=== PATIENT | female | born 1950 | race Caucasian/White ===

== ENCOUNTER 2016-10-17 06:24 | Inpatient (IN) | payer OTHER ==
[~2016-10-17] VITALS: Ht 162.6 cm; Wt 76.2 kg
[2016-10-17] VITALS (20 sets, daily range): BP systolic 63–140; BP diastolic 33–60; PULSE 78–113; RESP 15–40; TEMP 97–99; O2SAT 92–100
[2016-10-17] MEDS ORDERED: NS 500 ML IV SCH (06:35)
[2016-10-17] MEDS ORDERED: PANTOPRAZOLE SODIUM 40 MG/VIAL (PROTONIX) IVP ONE (06:45)
[2016-10-17] MEDS ORDERED: PROCHLORPERAZINE EDISYLATE 10 MG/2 ML VIAL IVP ONE (06:45)
[2016-10-17 06:46] LABS: BASOPHILS % (AUTO) 0.3 % (0.0-2.0); EOSINOPHILS # (AUTO) 0.1 K/uL (0.0-0.4); EOSINOPHILS % (AUTO) 0.5 % (0.0-4.0); HEMATOCRIT 42.2 % (36-48); HEMOGLOBIN 13.7 g/dL (12.0-16.0); LYMPHOCYTES # (AUTO) 3.3 K/uL (1.0-5.5); LYMPHOCYTES % (AUTO) 26.7 % (20.5-51.5); MEAN CORPUSCULAR HEMOGLOBIN 29 pg (27-31); MEAN CORPUSCULAR HGB CONC 33 % (32-36); MEAN CORPUSCULAR VOLUME 90 fL (79.0-98.0); MONOCYTES % (AUTO) 8.3 % (1.7-9.3); NEUTROPHILS # (AUTO) 7.8 K/uL (1.8-7.7); NEUTROPHILS % (AUTO) 64.2 % (40.0-70.0); PLATELET COUNT (AUTO) 268 K/uL (130-430); RED BLOOD CELL COUNT(AUTO) 4.68 MIL/uL (4.2-6.2); RED CELL DISTRIBUTION WIDTH 14.6 % (9.0-15.0); WHITE BLOOD COUNT (AUTO) 12.2 K/uL (4.8-10.8)
[2016-10-17 06:55] LABS: CREATININE 1.29 mg/dL (0.55-1.30)
[2016-10-17 06:58] LABS: INR 1.2 (0.8-1.2); PROTHROMBIN TIME 12.6 SECS (9.5-12.5)
[2016-10-17 07:00] LABS: ALBUMIN 3.4 g/dL (3.4-4.8); TOTAL BILIRUBIN 0.9 mg/dL (0.0-1.0); TOTAL PROTEIN, SERUM 7.5 g/dL (6.4-8.3)
[2016-10-17] MEDS ORDERED: ADENOSINE 6MG/2ML VIAL IVP ONE (07:00)
[2016-10-17] MEDS ORDERED: ADENOSINE 6MG/2ML VIAL ONE ×2 (07:02→07:10)
[2016-10-17 07:03] LABS: POTASSIUM 2.9 mmol/L (3.5-5.1)
[2016-10-17] MEDS ORDERED: POTASSIUM CHLORIDE 20 MEQ TAB.PRT.SR PO ONE (07:15)
[2016-10-17] MEDS ORDERED: METOPROLOL TARTRATE 5 MG/5 ML VIAL IVP ONE (07:15)
[2016-10-17] MEDS ORDERED: MAGNESIUM SULFATE 1 GM/2 ML VIAL ONE (07:22)
[2016-10-17] MEDS ORDERED: ESTR0.623 PO (07:55)
[2016-10-17] MEDS ORDERED: SERT100T PO (07:55)
[2016-10-17] MEDS ORDERED: [UNRECOGNIZED DRUG - CODE] PO (07:55)
[2016-10-17] MEDS ORDERED: HYDR-4100 PO (07:55)
[2016-10-17] MEDS ORDERED: CHOL500037 PO (07:55)
[2016-10-17] MEDS ORDERED: MET10 PO (07:55)
[2016-10-17] MEDS ORDERED: LEVO125T8 PO (07:55)
[2016-10-17] MEDS ORDERED: METH750T3 PO (07:55)
[2016-10-17] MEDS ORDERED: MAGNESIUM SULFATE 50 ML IV ONE (08:00)
[2016-10-17] MEDS ORDERED: KCL 40mEq in D5/0.45NS 1000 mL 1,000 ML IV ONE (08:00)
[2016-10-17 08:27] LABS: CHOLESTEROL 160 mg/dL (<200); HDL CHOLESTEROL 54 mg/dL (>55); LDL CHOLESTEROL 77 mg/dL (<100); TRIGLYCERIDES 115 mg/dL (30-150)
[2016-10-17] MEDS ORDERED: NS 500 ML IV ONE (09:00)
[2016-10-17] MEDS: D5NS 1,000 ML IV SCH ×2 (11:45→20:48)
[2016-10-17] MEDS ORDERED: IPRATROPIUM BROM 0.5 MG/2.5 ML VIAL.NEB (ATROVENT) INH PRN (11:45)
[2016-10-17] MEDS ORDERED: ALBUTEROL SULFATE 0.083% 2.5 MG/3 ML VIAL.NEB INH PRN (11:45)
[2016-10-17] MEDS ORDERED: METHADONE HCL 10 MG TABLET PO ONE (12:15)
[2016-10-17] MEDS ORDERED: LEVOTHYROXINE SODIUM 0.125 MG TABLET PO ONE (12:15)
[2016-10-17] MEDS ORDERED: SERTRALINE HCL 50 MG TABLET PO ONE (12:15)
[2016-10-17 13:17] LABS: HEMATOCRIT 26.6 % (36-48); HEMOGLOBIN 8.6 g/dL (12.0-16.0)
[2016-10-17] MEDS ORDERED: PANTOPRAZOLE SODIUM 80 MG in NS 100 ML IV ONE (14:30)
[2016-10-17] MEDS: IPRATROPIUM BROM 0.5 MG/2.5 ML VIAL.NEB (ATROVENT) INH SCH ×3 (15:35→23:00)
[2016-10-17] MEDS: ALBUTEROL SULFATE 0.083% 2.5 MG/3 ML VIAL.NEB INH SCH ×3 (15:35→23:00)
[2016-10-17] MEDS: fentaNYL CITRATE/PF 100 MCG/2 ML AMP ONE ×4 (16:18→17:02)
[2016-10-17] MEDS: MIDAZOLAM HCL 5 MG/5 ML VIAL ONE ×4 (16:18→17:02)
[2016-10-17] MEDS ORDERED: MIDAZOLAM HCL 5 MG/5 ML VIAL ONE (16:18)
[2016-10-17] MEDS: DIPHENHYDRAMINE INJ 50 MG/ML VIAL ONE ×2 (16:57→16:58)
[2016-10-17] MEDS ORDERED: METOPROLOL TARTRATE 5 MG/5 ML VIAL IVP PRN (17:00)
[2016-10-17] MEDS: PANTOPRAZOLE SODIUM 40 MG in NS 50 ML IV SCH ×2 (17:36→20:48)
[2016-10-17 19:04] LABS: HEMATOCRIT 24.6 % (36-48); HEMOGLOBIN 8.1 g/dL (12.0-16.0)
[2016-10-17] MEDS: PANTOPRAZOLE SODIUM 40 MG/VIAL (PROTONIX) IVP SCH (20:49)
[2016-10-18] VITALS (19 sets, daily range): BP systolic 117–148; BP diastolic 40–58; PULSE 92–111; RESP 12–21; TEMP 98.1–99.5; O2SAT 94–99
[2016-10-18 00:30] LABS: HEMATOCRIT 22.1 % (36-48); HEMOGLOBIN 7.4 g/dL (12.0-16.0)
[2016-10-18] MEDS: PANTOPRAZOLE SODIUM 40 MG in NS 50 ML IV SCH ×5 (01:25→20:08)
[2016-10-18] MEDS: ALBUTEROL SULFATE 0.083% 2.5 MG/3 ML VIAL.NEB INH SCH ×6 (03:00→23:00)
[2016-10-18] MEDS: IPRATROPIUM BROM 0.5 MG/2.5 ML VIAL.NEB (ATROVENT) INH SCH ×6 (03:00→23:00)
[2016-10-18] MEDS: LEVOTHYROXINE SODIUM 0.125 MG TABLET PO SCH (06:04)
[2016-10-18] MEDS: D5NS 1,000 ML IV SCH ×3 (07:45→20:10)
[2016-10-18] MEDS: SERTRALINE HCL 50 MG TABLET PO SCH (09:11)
[2016-10-18] MEDS: METHADONE HCL 10 MG TABLET PO SCH (09:11)
[2016-10-18] MEDS: PANTOPRAZOLE SODIUM 40 MG/VIAL (PROTONIX) IVP SCH ×2 (09:11→20:09)
[2016-10-18 11:19] LABS: CALCIUM 8.5 mg/dL (8.4-11.0); CREATININE 1.41 mg/dL (0.55-1.30); POTASSIUM 4.5 mmol/L (3.5-5.1)
[2016-10-18 11:20] LABS: HEMATOCRIT 26.8 % (36-48); HEMOGLOBIN 8.6 g/dL (12.0-16.0)
[2016-10-18 18:29] LABS: HEMATOCRIT 25.3 % (36-48); HEMOGLOBIN 8.1 g/dL (12.0-16.0)
[2016-10-19] VITALS (7 sets, daily range): BP systolic 152–163; BP diastolic 65–81; PULSE 78–95; RESP 16–20; TEMP 97.6–99.3; O2SAT 93–98
[2016-10-19 00:47] LABS: HEMATOCRIT 25.6 % (36-48); HEMOGLOBIN 8.5 g/dL (12.0-16.0)
[2016-10-19] MEDS: PANTOPRAZOLE SODIUM 40 MG in NS 50 ML IV SCH ×3 (01:45→13:16)
[2016-10-19] MEDS: ALBUTEROL SULFATE 0.083% 2.5 MG/3 ML VIAL.NEB INH SCH ×4 (03:00→15:37)
[2016-10-19] MEDS: IPRATROPIUM BROM 0.5 MG/2.5 ML VIAL.NEB (ATROVENT) INH SCH ×4 (03:00→15:37)
[2016-10-19] MEDS: D5NS 1,000 ML IV SCH (06:05)
[2016-10-19 07:25] LABS: HEMATOCRIT 24.7 % (36-48); HEMOGLOBIN 8.2 g/dL (12.0-16.0)
[2016-10-19] MEDS: LEVOTHYROXINE SODIUM 0.125 MG TABLET PO SCH (08:33)
[2016-10-19] MEDS: SERTRALINE HCL 50 MG TABLET PO SCH (08:33)
[2016-10-19] MEDS: METHADONE HCL 10 MG TABLET PO SCH (08:33)
[2016-10-19] MEDS ORDERED: PRO40 PO (10:56)
[2016-10-19] MEDS ORDERED: METO25TA3 PO (10:57)
[2016-10-19 11:59] LABS: HEMATOCRIT 25.5 % (36-48); HEMOGLOBIN 8.2 g/dL (12.0-16.0)
== END 2016-10-19 16:40 | disposition home or self-care (01) | DRG 378 ==
LOC: SED 06:24 → SIC 09:06 → STU 10-18 19:18
PROVIDERS: ADMIT Internal Medicine Hospice and Palliative Medicine; ATTEND Internal Medicine Hospice and Palliative Medicine
PROC: 0DB68ZX Excision of Stomach, Via Natural or Artificial Opening Endoscopic, Diagnostic (ICD-10-PCS; principal; 2016-10-17 17:00)
PROC: 30233N1 Transfusion of Nonautologous Red Blood Cells into Peripheral Vein, Percutaneous Approach (ICD-10-PCS; 2016-10-18)
DX: K25.0 Acute gastric ulcer with hemorrhage (principal); D62 Acute posthemorrhagic anemia; I47.1 Supraventricular tachycardia; G89.4 Chronic pain syndrome; I48.91 Unspecified atrial fibrillation; I10 Essential (primary) hypertension; E87.6 Hypokalemia; J44.9 Chronic obstructive pulmonary disease, unspecified; F17.200 Nicotine dependence, unspecified, uncomplicated; E66.9 Obesity, unspecified; T48.6X5A Adverse effect of antiasthmatics, initial encounter; Y92.89 Other specified places as the place of occurrence of the external cause; Z90.710 Acquired absence of both cervix and uterus; Z86.73 Personal history of transient ischemic attack (TIA), and cerebral infarction without residual deficits; Z79.891 Long term (current) use of opiate analgesic; Z88.8 Allergy status to other drugs, medicaments and biological substances; Z79.899 Other long term (current) drug therapy; Z68.28 Body mass index [BMI] 28.0-28.9, adult
CPT/HCPCS: 36415; 43239; 71010; 80048; 80053; 80061; 80198-TC; 83605; 83735-TC; 83880; 84132-TC; 84484; 85018-TC; 85025; 85379; 85610-TC; 85730-TC; 86886; 86900; 86901; 86920; 87040-TC; 87081; 88305; 88312; 88313; 93005; 93306; 94640; 94760; 96361; 96374; 96375; 99291; C9113; J0153; J0780; J1200; J2250; J3010; J3475; J3490; J7040; J7042; P9021